=== PATIENT | female | born 1955 | race Caucasian/White ===

== ENCOUNTER 2019-05-05 07:58 | Outpatient (CLI) | payer MEDICARE, OTHER, SELFPAY ==
--- NOTE | 2019-05-05 | CT_ITS ---
WS: [id number] CT ABDOMEN NON-CONTRAST PLUS CONTRAST TECHNIQUE: Noncontrast CT of the abdomen and contrast-enhanced CT of the abdomen with coronal and sag ittal reformatted images. CLINICAL INFORMATION: RENAL CYST COMPARISON: ultrasound DLP: [address] scans at [facility] use at least one of these dose optimization techniques: automat ed exposure control; mA and/or kV adjustment per patient size (includes targeted exams where dose is matched to clinical indication); or iterative reconstruction. 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 No evidence of obstruction o r hydronephrosis. Normal filling of the visualized ureter. No evidence of renal mass or cyst. Normal left renal parenchymal enhancement. Contrast filled left ureter. No hydronephrosis Left kidney. A few nonobstructing left renal parenchymal calculi. Small right peripelvic cyst measuring 1.3 x 1.3 x 1.5 cm likely corresponds to the ultrasound findings. This has the appearance of a simple cyst. Normal liver. Gallbladder is contracted. Normal portal vein and splenic vein. Low-attenuation lesion within the body of the pancreas measuring 9 mm. Differential considerations include serous and mucino us cystic neoplasms and sidebranch IPMN Pancreatic duct appears normal. This can be further evaluated with MRI. Normal spleen. Adrenal glands are normal. Small esophageal hiatal hernia. Lung bases are well aerated . Normal caliber abdominal aorta. Incidental fat-containing umbilical hernia. CT/CT abdomen wo/w con [id number] IMPRESSION: 1. 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 Normal bilateral neisha al parenchymal enhancement and ureteral excretion. No evidence of obstruction. 2. Peripelvic cyst right kidney measuring approximately 1.3 x 1.5 x 1.3 cm lik yakov corresponds to the renal cyst seen on the ultrasound. No other suspicious r enal parenchymal lesions. 3. Low-attenuation lesion in the body of the pancreas measuring 9.6 mm. Differ ential considerations include serous or mucinous cystic neoplasm or sidebranch IPMN. This can be further evaluated MRI. 4. Small esophageal hiatal hernia. 5. Gallbladder is contracted.
[2019-05-05] MEDS: iohexol 300 mg/mL 100 mL Btl IV (09:42)
[2019-05-05 10:04] LABS: Blood Urea Nitrogen 11 mg/dL (8-23); Glomerular Filtration Rate 100.3 mL/min (90-130)
== END 2019-05-05 07:59 | disposition home or self-care (01) ==
PROVIDERS: Family Provider Family Medicine; PCP Family Medicine; Referring Provider Family Medicine; Visit Provider Family Medicine
DX: N28.1 Cyst of kidney, acquired (principal); K44.9 Diaphragmatic hernia without obstruction or gangrene; K82.0 Obstruction of gallbladder
CPT/HCPCS: 74170; 82565; 84520; Q9967

== ENCOUNTER 2019-05-08 13:56 | Outpatient (CLI) | payer MEDICARE, OTHER, SELFPAY | END 2019-05-08 13:57 | disposition home or self-care (01) | LOC: RAD 14:06 → CT 14:33 | PROVIDERS: Family Provider Family Medicine; PCP Family Medicine; Visit Provider Family Medicine | DX: N28.1 Cyst of kidney, acquired (principal); K44.9 Diaphragmatic hernia without obstruction or gangrene; K82.0 Obstruction of gallbladder ==

== ENCOUNTER 2019-06-06 06:26 | Day surgery (SDC) | payer MEDICARE, OTHER, SELFPAY ==
[2019-06-05 08:12] VITALS: BMI 23.6
--- NOTE | 2019-06-06 06:42 | ANES.PREANE2 ---
Pre-Anesthetic Assessment Pre-Anesthetic Assessment: Height/Weight: Height 1.6 m Weight 60.328 kg Preop Diagnosis: abdominal pain Proposed Procedure: Operation Date: 06/06/19 08:15 Proposed Procedures p EGD 11405 R10.13(Not Applicable) - Marcus Saleh MD Familial anesthetic complications: No trouble Was Beta Sanam taken within 24 hours: Yes Last intake: yesterday at 1800, sips with meds this morning Social: Social History: No alcohol and No tobacco Exam: Pre-Anes Outpt Exam: alert, oriented x 3, clear to auscultation bilaterally and regular rate & rhythm Airway: Cervical ROM: WNL MP: 1 Dentition: Full Pulmonary: Pulmonary: None reported CV/HEM: CV/HEM: HTN : Comments: pelvic kidney Hepatic: Hepatic: None reported GI: Comments: abdominal pain Metabolic: Metabolic: None reported Musc/skel: Musc/skel: OA/DJD Neuropsych: Neuropsych: None reported Anesthetic Plan: ASA status: II Anesthesia: MAC PFSH Anesthesia PFSH: Medical History (Updated 05/08/19 @ 16:22 by Marcus Saleh MD) Ankylosing spondylitis (Acute) Diabetes (Acute) GERD (gastroesophageal reflux disease) (Acute) Heart palpitations (Acute) Hypertension (Acute) Lumbar spondylosis (Acute) Myocardial infarction (Acute) Osteoarthritis of hands, bilateral (Acute) Pancreatic cyst (Acute) Urinary, incontinence, stress female (Acute) Surgical History (Updated 05/08/19 @ 16:22 by Marcus Saleh MD) H/O: hysterectomy (Acute) vaginal, 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
[2019-06-06 07:28] VITALS: BP 145/83; PULSE 62; RESP 20; TEMP 36.4; O2SAT 97
[2019-06-06] MEDS: sodium chloride 0.9% 1,000 ML 30 ML (07:39)
--- NOTE | 2019-06-06 09:03 | PM.HPUD ---
H&P update H&P Update: DATE OF SURGERY/PROCEDURE: 06/06/19 DATE H&P PERFORMED: 05/08/19 H&P UPDATE INFORMATION: H&P completed within last 30 days and No changes to prior documentation PREOP DIAGNOSIS: Epigastric pain PLANNED PROCEDURE: Operation Date: 06/06/19 08:15 Proposed Procedures p EGD 80903 R10.13(Not Applicable) - Marcus Saleh MD Full H&P Perinent History: Medical/Surgical History: Medical History (Updated 06/06/19 @ 07:12 by Marcus Saleh MD) Ankylosing spondylitis (Acute) Diabetes (Acute) GERD (gastroesophageal reflux disease) (Acute) Heart palpitations (Acute) Hypertension (Acute) Lumbar spondylosis (Acute) Myocardial infarction (Acute) Osteoarthritis of hands, bilateral (Acute) Pancreatic cyst (Acute) Urinary, incontinence, stress female (Acute) Family History: Family History (Updated 05/08/19 @ 16:17 by Mila Maza LPN) Sister Cancer Pancreas, breast Hypertension Father Cancer lung Other Diabetes Hyperlipidemia Stroke Denies family history of Anesthesia complication Bleeding disorder Social History: Social History Smoking and tobacco status: never smoked Alcohol intake: current Alcohol intake frequency: holidays/special occasions only Current occupational status: retired
[2019-06-06 09:21] VITALS: BP 114/67; PULSE 55; RESP 16; TEMP 36.4; O2SAT 96
[2019-06-06 09:37] VITALS: BP 121/65; PULSE 58; RESP 18; O2SAT 97
--- NOTE | 2019-06-06 10:07 | ANE.PACU2 ---
 Inpatient post-anesthesia follow up: Airway intact: Yes Vital signs: Temperature 97.5 F Pulse Rate 58 Respiratory Rate 18 Blood Pressure 121/65 Pulse Oximetry 97 Oxygen Delivery Me thod Room Air Oxygen Flow Rate 2 Fraction of Inspir ed Oxygen Hydration adequate: Yes Nausea and vomiting: No Mental status: Baseline
== END 2019-06-06 09:55 | disposition home or self-care (01) ==
PROVIDERS: Family Provider Family Medicine; PCP Family Medicine; Visit Provider Surgery
PROC: 0DJ08ZZ Inspection of Upper Intestinal Tract, Via Natural or Artificial Opening Endoscopic (ICD-10-PCS; CPT 43235; principal; 2019-06-06 08:15)
DX: R10.13 Epigastric pain (principal); R14.0 Abdominal distension (gaseous); E11.9 Type 2 diabetes mellitus without complications; K21.9 Gastro-esophageal reflux disease without esophagitis; I10 Essential (primary) hypertension; I25.2 Old myocardial infarction; M19.042 Primary osteoarthritis, left hand; M19.041 Primary osteoarthritis, right hand; Z82.49 Family history of ischemic heart disease and other diseases of the circulatory system; Z83.3 Family history of diabetes mellitus; K29.70 Gastritis, unspecified, without bleeding; K44.9 Diaphragmatic hernia without obstruction or gangrene
CPT/HCPCS: 12345; 43239; 88305; J2704; J7030

== ENCOUNTER 2019-07-18 08:01 | Outpatient (CLI) | payer MEDICARE, OTHER, SELFPAY ==
--- NOTE | 2019-07-18 08:45 | MR_ITS ---
WS: [id number] MRCP, 07/18/2019 Clinical Data: Abdominal pain pancreatic cyst on CT scan Comparison: CT abdomen and pelvis, 05/08/2019. Findings: The pancreas shows a cystic lesion in the midportion of body of pancreas measuring 0.9 cm. Again the differential diagnosis involves a simple cyst, a small pseudocyst, intraductal papillary mucinous rosie plasm and other cystic abnormalities. The pancreatic duct is not dilated. No peripancreatic edema is seen. No definite pancreatic masses are noted. The distal pancreatic duct empties normally into the descending duodenum with no evidence of any stri cture or intraluminal defect. The common bile duct shows no abnormalities. The gallbladder is unremarkable. The liver, spleen, left kidney, stomach, abdominal aorta and inferior vena cava are unremarkable. MR/MR MRCP 29661 Impression: 1. Cystic lesion midportion of the body pancreas. 2. Follow-up CT abdomen with emphasis on the pancreas in 90 days may be helpful .
== END 2019-07-18 08:02 | disposition home or self-care (01) ==
LOC: RADSHAW 08:05
PROVIDERS: Family Provider Family Medicine; PCP Family Medicine; Visit Provider Surgery
DX: K86.2 Cyst of pancreas (principal)
CPT/HCPCS: 74181

== ENCOUNTER → 2019-07-25 10:12 | Outpatient (BNVA) | payer MEDICARE, OTHER, SELFPAY | PROVIDERS: Family Provider Family Medicine; PCP Family Medicine; Visit Provider Family Medicine | DX: I10 Essential (primary) hypertension (principal); E11.9 Type 2 diabetes mellitus without complications; K21.9 Gastro-esophageal reflux disease without esophagitis | CPT/HCPCS: 80053; 80061; 82044; 83036; 85025 ==

== ENCOUNTER 2019-11-21 08:39 | Outpatient (CLI) | payer MEDICARE, OTHER, SELFPAY ==
--- NOTE | 2019-11-21 09:00 | CT_ITS ---
WS: [id number] CT ABDOMEN NON-CONTRAST PLUS CONTRAST TECHNIQUE: Noncontrast CT of the abdomen and contrast-enhanced CT of the abdomen with coronal and sag ittal reformatted images. CLINICAL INFORMATION: pancreatic cyst COMPARISON: July 18, [address] abdomen pelvis May 05, 2019 DLP: 1989.[address] scans at [facility] use at least one of these dose optimization techniques: automat ed exposure control; mA and/or kV adjustment per patient size (includes targeted exams where dose is matched to clinical indication); or iterative reconstruction. FINDINGS: Again seen is the small cystic lesion along the pancreas measuring 10 mm unchanged the prior examinat ions. Differential considerations are unchanged and include pancreatic cyst, serous or mucinous cysti c neoplasm, or sidebranch IPMN. No significant pancreatic ductal dilatation. 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 Normal liver. Gallbladder is contracted. Normal portal vein and splenic vein. Normal spleen. Adrenal glands are normal. Small esophageal hiatal hernia. Lung bases are well aerated. Normal caliber abdom inal aorta. Incidental fat-containing umbilical hernia CT/CT abdomen wo/w con [id number] IMPRESSION: 1. Stable low-attenuation 10 mm lesion involving the body of the pancreas is u nchanged since the prior examinations. Differential considerations are unchange d as previously described include pancreatic cyst,serous or mucinous cystic rosie plasm, or sidebranch IPMN. Recommend continued surveillance. 2. No other significant changes from previous.
[2019-11-21 09:16] LABS: Blood Urea Nitrogen 12 mg/dL (8-23)
[2019-11-21] MEDS: iohexol 300 mg/mL 100 mL Btl IV (09:34)
== END 2019-11-21 08:40 | disposition home or self-care (01) ==
LOC: RADWPI 08:44
PROVIDERS: Family Provider Family Medicine; PCP Family Medicine; Visit Provider Surgery
DX: K86.2 Cyst of pancreas (principal)
CPT/HCPCS: 74170; 82565; 84520; Q9967

== ENCOUNTER → 2020-01-22 09:05 | Outpatient (BNVA) | payer MEDICARE, OTHER, SELFPAY | PROVIDERS: Family Provider Family Medicine; PCP Family Medicine; Visit Provider Internal Medicine | DX: M47.816 Spondylosis without myelopathy or radiculopathy, lumbar region (principal); Z79.899 Other long term (current) drug therapy | CPT/HCPCS: 36415; 99213 ==

== ENCOUNTER 2020-01-22 10:10 | Outpatient (CLI) | payer MEDICARE, OTHER, SELFPAY ==
--- NOTE | 2020-01-22 10:25 | XRR_ITS ---
PROCEDURE INFORMATION: Exam: XR Lumbosacral Spine, 2 or 3 Views Exam date and time: 01/22/2020 10:45 AM Age: 64 years old Clinical indication: Low back pain; Additional info: Lower back pain TECHNIQUE: Imaging protocol: XR of the lumbosacral spine, 2 or 3 views. COMPARISON: No relevant prior studies available. FINDINGS: Vertebrae: Minimal dextroscoliosis. Soft tissues: Unremarkable. Organs: Small left renal calculi largest approximately 4 mm. XR/XR lumbar spine 2-3V* [id number] IMPRESSION: No acute findings. Left renal calculi.
--- NOTE | 2020-01-22 10:25 | XRR_ITS ---
PROCEDURE INFORMATION: Exam: XR Left Hand Exam date and time: 01/22/2020 10:44 AM Age: 64 years old Clinical indication: Pain; Hand; Bilateral; Additional info: Hand pain TECHNIQUE: Imaging protocol: XR Left hand. Views: 3 or more views. COMPARISON: CR Hand 2 views, LEFT [id number] 11/29/2018 3:31 PM FINDINGS: Bones/joints: Normal. Soft tissues: Normal. XR/XR hand LT 2V [id number] IMPRESSION: No acute findings.
--- NOTE | 2020-01-22 10:25 | XRR_ITS ---
PROCEDURE INFORMATION: Exam: XR Right Hand Exam date and time: 01/22/2020 10:44 AM Age: 64 years old Clinical indication: Pain; Hand; Bilateral; Additional info: Hand pain TECHNIQUE: Imaging protocol: XR Right hand. Views: 1 or 2 views. COMPARISON: No relevant prior studies available. FINDINGS: Bones/joints: Normal. Soft tissues: Normal. XR/XR hand RT 2V [id number] IMPRESSION: No acute findings.
== END 2020-01-22 10:11 | disposition home or self-care (01) ==
LOC: RAD 10:20
PROVIDERS: PCP Family Medicine; Visit Provider Internal Medicine
DX: M54.5 Low back pain (principal); M79.642 Pain in left hand; M79.641 Pain in right hand; N20.0 Calculus of kidney; M47.816 Spondylosis without myelopathy or radiculopathy, lumbar region
CPT/HCPCS: 72100; 73120; 80053; 83735; 84439; 84443; 85025; 85651; 86140; 86812

== ENCOUNTER → 2020-02-22 11:56 | Outpatient (BNVA) | payer MEDICARE, OTHER, SELFPAY | PROVIDERS: PCP Family Medicine; Visit Provider Family Medicine | DX: E11.9 Type 2 diabetes mellitus without complications (principal); R00.2 Palpitations | CPT/HCPCS: 83036 ==

== ENCOUNTER 2020-04-08 10:24 | Outpatient (CLI) | payer MEDICARE, OTHER, SELFPAY ==
--- NOTE | 2020-04-08 10:30 | MM_ITS ---
WS: [id number] BILATERAL SCREENING DIGITAL MAMMOGRAM WITH CAD HISTORY: SCREENING COMPARISON: 02/16/2019 and 04/28/2017 Bilateral CC and MLO views submitted. Computer aided detection analyzed. Breast composition: The breasts are heterogeneously dense, which may obscure small masses. No suspici ous masses, microcalcifications or architectural distortion. Calcifications in each breast. MM/[place] [id number] IMPRESSION: BI-RADS: 2-Benign FOLLOW UP: 1 Year Follow-up
== END 2020-04-08 10:25 | disposition home or self-care (01) ==
PROVIDERS: PCP Family Medicine; Visit Provider Family Medicine
DX: Z12.31 Encounter for screening mammogram for malignant neoplasm of breast (principal)
CPT/HCPCS: 77067

== ENCOUNTER 2020-04-19 15:23 | Emergency (ER) | payer MEDICARE, OTHER, SELFPAY ==
[2020-04-19 15:50] VITALS: BP 158/96; PULSE 65; RESP 16; TEMP 36.5; O2SAT 99; BMI 23.9
--- NOTE | 2020-04-19 15:56 | XR_ITS ---
WS: [id number] XR chest 1V portable [id number] REASON FOR EXAM: palpitations FINDINGS: Chest is unchanged compared to 11/29/2018. The heart and mediastinum are within normal limits. Calcified granulomatous changes in both hemithoraces. No active pulmonary parenchymal or pleural disease. Mild degenerative changes in the mid and lower thoracic spine and the shoulder joints. XR/XR chest 1V portable [id number] IMPRESSION: No acute chest abnormality.
--- NOTE | 2020-04-19 15:57 | ECG_ITS ---
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 [email or web address]
[2020-04-19 16:23] VITALS: BP 154/88; PULSE 66; RESP 18; O2SAT 98
[2020-04-19 16:39] LABS: Basophils % 0.4 %; Eosinophils # 0.2 10^3/uL (0.0-0.8); Eosinophils % 2.9 %; Hemoglobin 13.4 g/dL (11.5-15.3); Lymphocytes # 2.1 10^3/uL (0.8-4.8); Lymphocytes % 37.1 %; Mean Corpuscular HGB Conc 33.5 g/dL (30.0-36.0); Mean Corpuscular Hemoglobin 31.5 pg (28.0-34.0); Mean Corpuscular Volume 93.9 fL (81-99); Mean Platelet Volume 10.9 fL (7.4-10.4); Monocytes # 0.3 10^3/uL (0.2-0.9); Monocytes % 5.4 %; Neutrophils # 2.98 10^3/uL (1.8-7.7); Nucleated Red Blood Cells % 0 %; Platelet Count 291 10^3/cmm (130-400); Red Blood Count 4.26 10^6/uL (4.1-5.3); Red Cell Distribution Width 12.1 % (12.1-15.1); White Blood Count 5.5 10^3/uL (4.0-10.0)
[2020-04-19 16:51] LABS: Alanine Aminotransferase 12 U/L (0-33); Albumin Level 4.2 g/dL (3.5-5.2); Alkaline Phosphatase 90 IU/L (35-105); Anion Gap 11.9 (5-19); Aspartate Amino Transferase 15 U/L (0-32); Blood Urea Nitrogen 11 mg/dL (8-23); Calcium 9.5 mg/dL (8.5-10.5); Carbon Dioxide 28 mmol/L (22-29); Chloride 108 mmol/L (98-107); Creatinine Clr Calc Pharmacy 61.0807; Globulin 2.5 g/dL (1.3-4.6); Glomerular Filtration Rate 123.4 mL/min (90-130); Glucose 93 mg/dL (65-115); Osmolality Calculated 297 mOsm/kg (285-295); Potassium 3.9 mmol/L (3.5-5.1); Sodium 144 mmol/L (136-145); Total Bilirubin 0.3 mg/dL (0.15-1.2); Total Protein 6.7 g/dL (6.6-8.7)
[2020-04-19 16:52] LABS: Troponin(5th) Baseline 6 ng/L (0-10)
--- NOTE | 2020-04-19 17:09 | W.ED.ARRPALP ---
HPI - Arrhythmia/Palpitations General: Chief Complaint: Arrhythmia/Palpitations Stated Complaint: ABNORMAL HEART MONITOR TEST Time Seen by Provider: 04/19/20 15:55 History of Present Illness: HPI narrative: Patient is a well appearing 64-year-old female sent to the emergency department by her primary care physician after her cardiac event monitor was read, finding multiple paroxysms of atrial fibrillation. She states that she has had intermittent palpitations and lightheadedness over the last several years, sometimes lasting minutes and sometimes lasting hours. She has a sister who has atrial fibrillation and takes Xarelto. She denies any cardiac history otherwise and states she has never had stents placed or any known cardiac abnormality. She otherwise feels well at this time with no chest pain, shortness of breath, lightheadedness, dizziness, nausea, vomiting, recent sickness or fever. Review of Systems General: Reports: 10 or more systems reviewed and unremarkable except in HPI and below PFSH ED PFSH: Medical History (Updated 04/19/20 @ 17:07 by Ranjan Jensen MD) Ankylosing spondylitis Essential hypertension GERD (gastroesophageal reflux disease) Heart palpitations Lumbar spondylosis Palpitations -check mg, K, tsh, t4, hgb -consider monitor Osteoarthritis of hands, bilateral Pancreatic cyst Type 2 diabetes mellitus, without long-term current use of insulin Urinary, incontinence, stress female Surgical History H/O esophagogastroduodenoscopy 06/06/2019: Small hiatal hernia, mild nonerosive gastritis H/O: hysterectomy vaginal, 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1996 Family History Sister Cancer Pancreas, breast Hypertension Father Cancer lung Other Diabetes Hyperlipidemia Stroke Denies family history of Anesthesia complication Bleeding disorder Social History (Updated 04/19/20 @ 15:54 by Jeff Machado RN) Smoking and tobacco status: never smoked Alcohol intake: current Alcohol intake frequency: holidays/special occasions only Substance/Drug Use: never Current occupational status: retired History of recent travel: Yes Details: [place] Out of country: Yes Physical Exam Const: COMMON NORMALS: no acute distress, patient oriented x3 and alert HENMT: COMMON NORMALS: normocephalic and atraumatic HEAD & SCALP: normocephalic and atraumatic Eye: COMMON NORMALS: Equal, round and reactive pupils present, EOMs intact bilaterally and no scleral icterus PUPIL: Yes Equal, round and reactive pupils present Resp: COMMON NORMALS: normal respiratory effort and No retractions Cardio: COMMON NORMALS: regular rate, regular rhythm and No murmurs present (Cardio) RATE: regular rate RHYTHM: regular rhythm GI: COMMON NORMALS: Normal to inspection, nondistended, normoactive bowel sounds present, Soft to palpation and non-tender PALPATION: Yes Soft to palpation Neuro: COMMON NORMALS: patient oriented x3 SENSORIUM/ORIENTATION: Yes alert Skin: COMMON NORMALS: no rashes or lesions noted GENERAL SKIN EXAM: no rashes or lesions noted Course Vital Signs: Vital signs: Vital Signs Temperature 97.7 F 04/19/20 15:50 Pulse Rate 66 04/19/20 16:23 Respiratory Rate 18 04/19/20 16:23 Blood Pressure 154/88 04/19/20 16:23 Pulse Oximetry 98 04/19/20 16:23 MDM - Arrhythmia/Palpitations MDM Narrative: Medical decision making narrative: Patient remained hemodynamically stable throughout ED course. She was given her first dose of Xarelto here and a prescription for 20 mg daily. We discussed anticoagulation strategies at length and she shows good understanding, knowing that she is always welcome back in the emergency department should her symptoms get worse before outpatient follow-up. She has a history of constipation and hemorrhoids, thus I recommended that she take low-dose MiraLAX daily to avoid increased chance of bleeding now that she is taking Xarelto. Lab Data: Labs: Lab Results 04/19/20 04/19/20 04/19/20 Range/Units 16:15 16:15 16:15 WBC 5.5 (4.0-10.0) 10^3/ uL RBC 4.26 (4.1-5.3) 10^6/u L Hgb 13.4 (11.5-15.3) g/dL Hct 40.0 (37.0-47.0) % MCV 93.9 (81-99) fL MCH 31.5 (28.0-34.0) pg MCHC 33.5 (30.0-36.0) g/dL RDW 12.1 (12.1-15.1) % Plt Count 291 (130-400) 10^3/c mm MPV 10.9 H (7.4-10.4) fL Neut % (Auto) 54.0 % Lymph % (Auto) 37.1 % [place] % (Auto) 5.4 % Eos % (Auto) 2.9 % Baso % (Auto) 0.4 % Neut # (Auto) 2.98 (1.8-7.7) 10^3/u L Lymph # (Auto) 2.1 (0.8-4.8) 10^3/u L [place] # (Auto) 0.3 (0.2-0.9) 10^3/u L Eos # (Auto) 0.2 (0.0-0.8) 10^3/u L Baso # (Auto) 0.0 (0.0-0.1) 10^3/u L Nucleated RBC % (a uto) 0 % Nucleated RBCs # 0.0 /100WBC Sodium 144 (136-145) mmol/L Potassium 3.9 (3.5-5.1) mmol/L Chloride 108 H (98-107) mmol/L Carbon Dioxide 28 (22-29) mmol/L Anion Gap 11.9 (5-19) BUN 11 (8-23) mg/dL Creatinine 0.5 (0.5-0.9) mg/dL GFR Calculation 123.4 (90-130) mL/min Glucose 93 (65-115) mg/dL Calculated Osmolal ity 297 H (285-295) mOsm/k g Calcium 9.5 (8.5-10.5) mg/dL Total Bilirubin 0.3 (0.15-1.2) mg/dL AST 15 (0-32) U/L ALT 12 (0-33) U/L Alkaline Phosphata se 90 (35-105) IU/L Troponin T Baselin e 6 (0-10) ng/L Total Protein 6.7 (6.6-8.7) g/dL Albumin 4.2 (3.5-5.2) g/dL Globulin 2.5 (1.3-4.6) g/dL EKG Data^: Time?1559?EKG?sinus bradycardia, rate of 54, no ST elevation or depression, intervals within normal limits.: Other EKG comments: Chest X-Ray 04/19/20 15:56 IMPRESSION: No acute chest abnormality. Discharge Plan Discharge Patient Disposition: Home Clinical Impression: Atrial flutter, paroxysmal Condition: Stable Prescriptions: New Xarelto 20 mg tablet 20 mg PO DAILY Qty: 30 RF: 0 No Action cinnamon bark [Cinnamon] 500 mg capsule 500 mg PO DAILY@07 RF: 0 meloxicam 15 mg tablet 15 mg PO DAILY Qty: 30 RF: 3 Geritol Complete 16 mg iron- 0.38 mg Tablet 1 tab PO DAILY@07 RF: 0 celecoxib 200 mg capsule 200 mg PO DAILY@07 RF: 0 pantoprazole 40 mg tablet,delayed release (DR/EC) 40 mg PO DAILY@07 RF: 0 metoprolol tartrate 25 mg tablet 12.5 mg PO Q12H RF: 0 Discharge Orders: Discharge ED (Routine); Ordered 04/19/20 Ordered By: Ranjan Jensen Referrals: Awilda Zeng DO [Primary Care Provider] - Discharge Diet: Usual diet Discharge Activity: Resume usual activity Patient Instructions: Atrial Fibrillation (ED) Coding Level of Care Code ED 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
[2020-04-19 18:10] VITALS: BP 129/83; PULSE 80; RESP 18; O2SAT 99
[2020-04-19 18:44] VITALS: BP 129/83; PULSE 80; RESP 18; O2SAT 99
[2020-04-19] MEDS: rivaroxaban 10 mg Tablet 20 MG PO (18:45)
== END 2020-04-19 18:45 | disposition home or self-care (01) ==
PROVIDERS: Emergency Provider Student in an Organized Health Care Education/Training Program; PCP Family Medicine
DX: I48.92 Unspecified atrial flutter (principal); I10 Essential (primary) hypertension; E11.9 Type 2 diabetes mellitus without complications
CPT/HCPCS: 12345; 71045; 80053; 84484; 85025; 93005; 99283

== ENCOUNTER → 2020-05-06 10:05 | Outpatient (BNVA) | payer MEDICARE, OTHER, SELFPAY | PROVIDERS: PCP Family Medicine; Visit Provider Internal Medicine | DX: M47.816 Spondylosis without myelopathy or radiculopathy, lumbar region (principal); M54.2 Cervicalgia; R70.0 Elevated erythrocyte sedimentation rate; Z15.89 Genetic susceptibility to other disease; M19.90 Unspecified osteoarthritis, unspecified site | CPT/HCPCS: 99213 ==

== ENCOUNTER 2020-11-23 15:34 | Outpatient (CLI) | payer MEDICARE, OTHER, SELFPAY ==
[2020-11-23 17:40] LABS: Basophils % 0.7 %; Eosinophils # 0.3 10^3/uL (0.0-0.8); Eosinophils % 4.5 %; Hematocrit 40.4 % (37.0-47.0); Hemoglobin 13.3 g/dL (11.5-15.3); Lymphocytes # 2.2 10^3/uL (0.8-4.8); Lymphocytes % 35.8 %; Mean Corpuscular HGB Conc 32.9 g/dL (30.0-36.0); Mean Corpuscular Hemoglobin 31.4 pg (28.0-34.0); Mean Corpuscular Volume 95.5 fL (81-99); Monocytes # 0.4 10^3/uL (0.2-0.9); Monocytes % 6.7 %; Neutrophils # 3.12 10^3/uL (1.8-7.7); Nucleated Red Blood Cells % 0 %; Platelet Count 263 10^3/cmm (130-400); Red Blood Count 4.23 10^6/uL (4.1-5.3); Red Cell Distribution Width 12.6 % (12.1-15.1)
[2020-11-23 18:02] LABS: Alanine Aminotransferase 13 U/L (0-33); Albumin Level 4.1 g/dL (3.5-5.2); Alkaline Phosphatase 79 IU/L (35-105); Anion Gap 13.6 (5-19); Aspartate Amino Transferase 15 U/L (0-32); Blood Urea Nitrogen 11 mg/dL (8-23); C Reactive Protein 1.6 mg/L (0.0-4.9); Calcium 8.8 mg/dL (8.5-10.5); Carbon Dioxide 27 mmol/L (22-29); Chloride 107 mmol/L (98-107); Globulin 2.5 g/dL (1.3-4.6); Glomerular Filtration Rate 99.7 mL/min (90-130); Glucose 103 mg/dL (65-115); Osmolality Calculated 298 mOsm/kg (285-295); Potassium 3.6 mmol/L (3.5-5.1); Sodium 144 mmol/L (136-145); Total Bilirubin 0.3 mg/dL (0.15-1.2); Total Protein 6.6 g/dL (6.6-8.7)
[2020-11-23 18:20] LABS: Erythrocyte Sedimentation Rate 23 mm/hr (0-15)
== END 2020-11-23 15:35 | disposition home or self-care (01) ==
LOC: LAB 15:41
PROVIDERS: PCP Family Medicine; Visit Provider Internal Medicine
DX: M47.816 Spondylosis without myelopathy or radiculopathy, lumbar region (principal); M54.2 Cervicalgia; R70.0 Elevated erythrocyte sedimentation rate; Z79.899 Other long term (current) drug therapy
CPT/HCPCS: 80053; 85025; 85651; 86140

== ENCOUNTER → 2020-12-04 09:44 | Outpatient (BNVA) | payer MEDICARE, OTHER, SELFPAY | PROVIDERS: PCP Family Medicine; Visit Provider Internal Medicine | DX: Z15.89 Genetic susceptibility to other disease (principal); R70.0 Elevated erythrocyte sedimentation rate; M54.2 Cervicalgia; G89.29 Other chronic pain; Z79.899 Other long term (current) drug therapy; Z79.01 Long term (current) use of anticoagulants | CPT/HCPCS: 99213; 99214 ==

== ENCOUNTER → 2021-04-10 14:16 | Outpatient (BNVA) | payer MEDICARE, OTHER, SELFPAY | PROVIDERS: PCP Family Medicine; Visit Provider Family Medicine | DX: R35.0 Frequency of micturition (principal) | CPT/HCPCS: 81000; 87077; 87086; 87184 ==

== ENCOUNTER 2021-04-17 08:32 | Outpatient (CLI) | payer MEDICARE, OTHER, SELFPAY ==
[2021-04-17 08:59] LABS: Basophils % 0.5 %; Eosinophils # 0.1 10^3/uL (0.0-0.8); Eosinophils % 2.2 %; Hematocrit 39.2 % (37.0-47.0); Hemoglobin 13.1 g/dL (11.5-15.3); Lymphocytes # 1.6 10^3/uL (0.8-4.8); Lymphocytes % 26.7 %; Mean Corpuscular HGB Conc 33.4 g/dL (30.0-36.0); Mean Corpuscular Hemoglobin 31.6 pg (28.0-34.0); Mean Corpuscular Volume 94.7 fl (81-99); Mean Platelet Volume 10.3 fL (7.4-10.4); Monocytes # 0.4 10^3/uL (0.2-0.9); Monocytes % 6.5 %; Neutrophils # 3.76 10^3/uL (1.8-7.7); Neutrophils % 63.9 %; Nucleated Red Blood Cells % 0 %; Platelet Count 255 10^3/cmm (130-400); Red Blood Count 4.14 10^6/uL (4.1-5.3); Red Cell Distribution Width 12.5 % (12.1-15.1); White Blood Count 5.9 10^3/uL (4.0-10.0)
[2021-04-17 09:16] LABS: Alanine Aminotransferase 15 U/L (0-33); Albumin Level 4.1 g/dL (3.5-5.2); Alkaline Phosphatase 83 IU/L (35-105); Anion Gap 17.3 (5-19); Aspartate Amino Transferase 17 U/L (0-32); Blood Urea Nitrogen 9 mg/dL (8-23); C Reactive Protein 3.6 mg/L (0.0-4.9); Calcium 9.2 mg/dL (8.5-10.5); Carbon Dioxide 26 mmol/L (22-29); Chloride 106 mmol/L (98-107); Glomerular Filtration Rate 123.1 mL/min (90-130); Glucose 106 mg/dL (65-115); Osmolality Calculated 299 mOsm/kg (285-295); Potassium 4.3 mmol/L (3.5-5.1); Sodium 145 mmol/L (136-145); Total Bilirubin 0.4 mg/dL (0.15-1.2); Total Protein 7.1 g/dL (6.6-8.7)
[2021-04-17 09:30] LABS: Erythrocyte Sedimentation Rate 12 mm/hr (0-15)
== END 2021-04-17 08:33 | disposition home or self-care (01) ==
PROVIDERS: PCP Family Medicine; Visit Provider Internal Medicine
DX: M54.2 Cervicalgia (principal); R70.0 Elevated erythrocyte sedimentation rate; Z15.89 Genetic susceptibility to other disease; Z79.899 Other long term (current) drug therapy; N20.0 Calculus of kidney
CPT/HCPCS: 36415; 80053; 85025; 85651; 86140; 99213

== ENCOUNTER 2021-05-02 11:55 | Outpatient (CLI) | payer MEDICARE, OTHER, SELFPAY ==
--- NOTE | 2021-05-02 12:07 | XR_ITS ---
WS: [id number] CERVICAL SPINE FLEXION EXTENSION TECHNIQUE: 3 views of the cervical spine: lateral neutral, flexion and extension views. CLINICAL INFORMATION: Z15.89 - Genetic susceptibility to other disease COMPARISON: November 29, 2018 FINDINGS: Osteopenia. Straightening of the normal cervical lordosis. Mild spondylitic changes. Slight anterolis thesis C3 on C4 and C4 on C5. No significant instability on flexion-extension. Normal C1-2 articulati on. Mild disc space narrowing C5-C6 and C6-C7. Posterior elements are normal. No other significant fi ndings. XR/XR cervical spine fl/ex [id number] IMPRESSION: 1. Straightening of the normal cervical lordosis osteopenia. 2. Slight anterolisthesis C3 on C4 and C4 on C5. No significant instability on flexion-extension. 3. Mild disc space narrowing C5-C6 and C6-C7.
== END 2021-05-02 11:56 | disposition home or self-care (01) ==
PROVIDERS: PCP Family Medicine; Visit Provider Internal Medicine
DX: R70.0 Elevated erythrocyte sedimentation rate (principal); Z15.89 Genetic susceptibility to other disease
CPT/HCPCS: 72040

== ENCOUNTER 2021-07-17 10:03 | Outpatient (CLI) | payer MEDICARE, OTHER, SELFPAY ==
--- NOTE | 2021-07-17 10:15 | MM_ITS ---
WS: [id number] BILATERAL 3D TOMOSYNTHESIS DIGITAL SCREENING MAMMOGRAPHY WITH CAD CLINICAL INFORMATION: screening mammogram HISTORY: Screening mammogram. No current complaints. COMPARISON: April 08, 2020 TECHNIQUE: Bilateral CC and MLO views. FINDINGS: The breasts are composed of heterogeneous fibroglandular density tissue, which can limit the detectio n of small underlying mass lesions. Vascular calcifications. Lucent centered calcifications. No suspi cious mass, asymmetry, calcifications, or architectural distortion. No evidence of malignancy. MM/[place] [id number] IMPRESSION: BI-RADS: 2-Benign FOLLOW UP: 1 Year Follow-up Recommend return to annual screening mammography.
== END 2021-07-17 10:04 | disposition home or self-care (01) ==
LOC: RADSHAW 10:07
PROVIDERS: PCP Family Medicine; Visit Provider Family Medicine
DX: Z12.31 Encounter for screening mammogram for malignant neoplasm of breast (principal)
CPT/HCPCS: 77063; 77067

== ENCOUNTER 2021-07-29 14:51 | Outpatient (CLI) | payer MEDICARE, OTHER, SELFPAY ==
[2021-07-29 15:18] LABS: Basophils % 0.5 %; Eosinophils # 0.2 10^3/uL (0.0-0.8); Eosinophils % 2.9 %; Hematocrit 35.9 % (37.0-47.0); Hemoglobin 11.7 g/dL (11.5-15.3); Lymphocytes # 1.9 10^3/uL (0.8-4.8); Lymphocytes % 32.8 %; Mean Corpuscular HGB Conc 32.6 g/dL (30.0-36.0); Mean Corpuscular Hemoglobin 30.6 pg (28.0-34.0); Mean Platelet Volume 10.5 fL (7.4-10.4); Monocytes # 0.4 10^3/uL (0.2-0.9); Monocytes % 7.5 %; Neutrophils # 3.24 10^3/uL (1.8-7.7); Neutrophils % 56.1 %; Nucleated Red Blood Cells % 0 %; Platelet Count 277 10^3/cmm (130-400); Red Blood Count 3.82 10^6/uL (4.1-5.3); Red Cell Distribution Width 12.3 % (12.1-15.1); White Blood Count 5.8 10^3/uL (4.0-10.0)
[2021-07-29 15:48] LABS: Erythrocyte Sedimentation Rate 34 mm/hr (0-15)
[2021-07-29 17:12] LABS: Alanine Aminotransferase 17 U/L (0-33); Albumin Level 3.9 g/dL (3.5-5.2); Alkaline Phosphatase 90 IU/L (35-105); Aspartate Amino Transferase 17 U/L (0-32); Blood Urea Nitrogen 8 mg/dL (8-23); C Reactive Protein 17.4 mg/L (0.0-4.9); Calcium 9.7 mg/dL (8.5-10.5); Carbon Dioxide 26 mmol/L (22-29); Globulin 3.6 g/dL (1.3-4.6); Glomerular Filtration Rate 122.7 mL/min (90-130); Glucose 115 mg/dL (65-115); Total Bilirubin 0.3 mg/dL (0.15-1.2); Total Protein 7.5 g/dL (6.6-8.7)
[2021-07-29 19:06] LABS: Anion Gap 13.7 (5-19); Chloride 105 mmol/L (98-107); Osmolality Calculated 291 mOsm/kg (285-295); Potassium 3.7 mmol/L (3.5-5.1); Sodium 141 mmol/L (136-145)
== END 2021-07-29 14:52 | disposition home or self-care (01) ==
LOC: LAB 14:53
PROVIDERS: PCP Family Medicine; Visit Provider Internal Medicine
DX: R70.0 Elevated erythrocyte sedimentation rate (principal); Z15.89 Genetic susceptibility to other disease; Z79.899 Other long term (current) drug therapy
CPT/HCPCS: 36415; 80053; 85025; 85651; 86140

== ENCOUNTER → 2021-08-21 10:13 | Outpatient (BNVA) | payer MEDICARE, OTHER, SELFPAY | PROVIDERS: PCP Family Medicine; Visit Provider Internal Medicine | DX: Z15.89 Genetic susceptibility to other disease (principal); R70.0 Elevated erythrocyte sedimentation rate; Z79.899 Other long term (current) drug therapy; R30.0 Dysuria; I48.0 Paroxysmal atrial fibrillation; N39.41 Urge incontinence | CPT/HCPCS: 87077; 87086; 87184; 99213 ==

== ENCOUNTER → 2021-12-24 12:46 | Outpatient (BNVA) | payer MEDICARE, OTHER, SELFPAY | PROVIDERS: PCP Family Medicine; Visit Provider Nurse Practitioner Family | DX: R33.9 Retention of urine, unspecified (principal); N39.0 Urinary tract infection, site not specified; N39.41 Urge incontinence | CPT/HCPCS: 81003; 87077; 87086; 87186; 99203 ==

== ENCOUNTER 2022-01-23 08:02 | Outpatient (CLI) | payer MEDICARE, OTHER, SELFPAY ==
[2022-01-23 08:43] LABS: Basophils % 0.4 %; Eosinophils # 0.2 10^3/uL (0.0-0.8); Eosinophils % 3.5 %; Hematocrit 38.4 % (37.0-47.0); Hemoglobin 12.6 g/dL (11.5-15.3); Lymphocytes # 1.4 10^3/uL (0.8-4.8); Lymphocytes % 29.3 %; Mean Corpuscular HGB Conc 32.8 g/dL (30.0-36.0); Mean Corpuscular Hemoglobin 31.2 pg (28.0-34.0); Mean Platelet Volume 10.9 fL (7.4-10.4); Monocytes # 0.6 10^3/uL (0.2-0.9); Monocytes % 11.4 %; Neutrophils # 2.72 10^3/uL (1.8-7.7); Neutrophils % 55.2 %; Nucleated Red Blood Cells % 0 %; Platelet Count 202 10^3/cmm (130-400); Red Blood Count 4.04 10^6/uL (4.1-5.3); Red Cell Distribution Width 12.9 % (12.1-15.1); White Blood Count 4.9 10^3/uL (4.0-10.0)
[2022-01-23 08:50] LABS: Erythrocyte Sedimentation Rate 8 mm/hr (0-15)
[2022-01-23 08:56] LABS: Chloride 106 mmol/L (98-107); Potassium 3.9 mmol/L (3.5-5.1); Sodium 143 mmol/L (136-145)
[2022-01-23 09:15] LABS: Alanine Aminotransferase 19 U/L (0-33); Albumin Level 3.9 g/dL (3.5-5.2); Alkaline Phosphatase 89 U/L (35-105); Anion Gap 12.9 (5-19); Aspartate Amino Transferase 21 U/L (0-32); Blood Urea Nitrogen 8 mg/dL (8-23); C Reactive Protein 7.4 mg/L (0.0-4.9); Carbon Dioxide 28 mmol/L (22-29); Globulin 3.2 g/dL (1.3-4.6); Glomerular Filtration Rate 122.7 mL/min (90-130); Glucose 88 mg/dL (65-115); Osmolality Calculated 294 mOsm/kg (285-295); Total Bilirubin 0.3 mg/dL (0.15-1.2); Total Protein 7.1 g/dL (6.6-8.7)
== END 2022-01-23 08:03 | disposition home or self-care (01) ==
PROVIDERS: PCP Family Medicine; Visit Provider Internal Medicine
DX: Z15.89 Genetic susceptibility to other disease (principal); Z79.899 Other long term (current) drug therapy; N30.20 Other chronic cystitis without hematuria; N39.41 Urge incontinence; K21.9 Gastro-esophageal reflux disease without esophagitis
CPT/HCPCS: 80053; 81003; 85025; 85651; 86140; 99213

== ENCOUNTER → 2022-02-09 10:11 | Outpatient (BNVA) | payer MEDICARE, OTHER, SELFPAY | PROVIDERS: PCP Family Medicine; Visit Provider Internal Medicine | DX: M47.816 Spondylosis without myelopathy or radiculopathy, lumbar region (principal); R70.0 Elevated erythrocyte sedimentation rate; Z15.89 Genetic susceptibility to other disease | CPT/HCPCS: 99213; 99214 ==

== ENCOUNTER 2022-08-12 11:45 | Outpatient (CLI) | payer MEDICARE, OTHER, SELFPAY ==
--- NOTE | 2022-08-12 12:27 | MM_ITS ---
WS: [id number] BILATERAL SCREENING DIGITAL TOMOSYNTHESIS MAMMOGRAM WITH CAD HISTORY: screening mammogram COMPARISON: 07/17/2021, 04/08/2020 and 02/16/2019 Bilateral CC and MLO views with tomosynthesis and synthetic mammography submitted. Computer aided det ection analyzed. Breast composition: There are scattered areas of fibroglandular density. No suspicious masses, microc alcifications or architectural distortion. Benign calcifications in each breast. Cardiac loop recorde r partially projects into the LEFT breast. MM/[place] [id number] IMPRESSION: BI-RADS: 2-Benign FOLLOW UP: 1 Year Follow-up
== END 2022-08-12 11:46 | disposition home or self-care (01) ==
PROVIDERS: PCP Family Medicine; Visit Provider Family Medicine
DX: Z12.31 Encounter for screening mammogram for malignant neoplasm of breast (principal)
CPT/HCPCS: 77063; 77067

== ENCOUNTER → 2022-11-24 11:04 | Outpatient (BNVA) | payer MEDICARE, OTHER, SELFPAY | PROVIDERS: PCP Family Medicine; Visit Provider Family Medicine | DX: E11.9 Type 2 diabetes mellitus without complications (principal); I10 Essential (primary) hypertension; K21.9 Gastro-esophageal reflux disease without esophagitis; K59.09 Other constipation | CPT/HCPCS: 80053; 80061; 82043; 83036 ==

== ENCOUNTER → 2023-04-12 10:55 | Outpatient (BNVA) | payer MEDICARE, OTHER, SELFPAY | PROVIDERS: PCP Family Medicine; Visit Provider Internal Medicine | DX: Z15.89 Genetic susceptibility to other disease (principal); R70.0 Elevated erythrocyte sedimentation rate; Z79.899 Other long term (current) drug therapy; M47.816 Spondylosis without myelopathy or radiculopathy, lumbar region | CPT/HCPCS: 99214 ==

== ENCOUNTER → 2023-05-04 11:01 | Outpatient (BNVA) | payer MEDICARE, OTHER, SELFPAY | PROVIDERS: PCP Family Medicine; Visit Provider Family Medicine | DX: I48.0 Paroxysmal atrial fibrillation (principal); K21.9 Gastro-esophageal reflux disease without esophagitis; I10 Essential (primary) hypertension; Z15.89 Genetic susceptibility to other disease; R70.0 Elevated erythrocyte sedimentation rate; Z79.899 Other long term (current) drug therapy | CPT/HCPCS: 80053; 80061; 85025; 85651; 86140 ==

== ENCOUNTER 2023-10-18 11:09 | Outpatient (CLI) | payer MEDICARE, OTHER, SELFPAY ==
--- NOTE | 2023-10-18 11:17 | MM_ITS ---
WS: [id number] BILATERAL 3D TOMOSYNTHESIS DIGITAL SCREENING MAMMOGRAPHY WITH CAD CLINICAL INFORMATION: SCREENING HISTORY: Screening mammogram. No current complaints. COMPARISON: 2022 TECHNIQUE: Bilateral CC and MLO views. FINDINGS: The breasts are composed of heterogeneous fibroglandular density tissue, which can limit the detectio n of small underlying mass lesions. No suspicious mass, asymmetry, calcifications, or architectural d istortion. No evidence of malignancy. A few incidental punctate and lucent centered calcifications. L oop recorder LEFT breast. Vascular calcifications. MM/[place] [id number] IMPRESSION: BI-RADS: 2-Benign FOLLOW UP: 1 Year Follow-up Recommend return to annual screening mammography.
== END 2023-10-18 11:10 | disposition home or self-care (01) ==
LOC: RAD 11:11
PROVIDERS: PCP Family Medicine; Visit Provider Family Medicine
DX: Z12.31 Encounter for screening mammogram for malignant neoplasm of breast (principal); R92.323 Mammographic fibroglandular density, bilateral breasts; R92.333 Mammographic heterogeneous density, bilateral breasts; R92.1 Mammographic calcification found on diagnostic imaging of breast
CPT/HCPCS: 77063; 77067

== ENCOUNTER → 2024-05-29 11:37 | Outpatient (BNVA) | payer MEDICARE, OTHER, SELFPAY | PROVIDERS: PCP Family Medicine; Visit Provider Family Medicine | DX: I10 Essential (primary) hypertension (principal) | CPT/HCPCS: 80053; 80061; 85025 ==

== ENCOUNTER 2025-01-17 10:24 | Outpatient (CLI) | payer MEDICARE, OTHER, SELFPAY ==
--- NOTE | 2025-01-17 10:32 | MM_ITS ---
WS: [id number] BILATERAL SCREENING DIGITAL TOMOSYNTHESIS MAMMOGRAM WITH CAD HISTORY: SCREENING COMPARISON: 10/18/2023, 08/12/2022, 07/17/2021 Bilateral CC and MLO views with tomosynthesis and synthetic mammography submitted. Computer aided detection analyzed. Breast composition: The breasts are heterogeneously dense, which may obscure small masses. No suspicious masses, microcalcifications or architectural distortion. Benign calcifications in each breast. Cardiac loop recorder obscures portions of the LEFT breast. No suspicious mass. No distortion. MM/MM [facility] tomosynthesis [id number] IMPRESSION: BI-RADS: 2 - Benign FOLLOW UP: 1 Year Follow-up
== END 2025-01-17 10:25 | disposition home or self-care (01) ==
LOC: RAD 10:27
PROVIDERS: PCP Family Medicine; Visit Provider Family Medicine
DX: Z12.31 Encounter for screening mammogram for malignant neoplasm of breast (principal); R92.333 Mammographic heterogeneous density, bilateral breasts; R92.1 Mammographic calcification found on diagnostic imaging of breast; R92.8 Other abnormal and inconclusive findings on diagnostic imaging of breast
CPT/HCPCS: 77063; 77067